=== PATIENT | male | born 1955 | race Caucasian/White ===

== ENCOUNTER 2017-03-18 06:05 | Inpatient (IN) | payer BC ==
[~2017-03-18] VITALS: Ht 180.3 cm; Wt 101.8 kg
[~2017-03-18 06:05] MED LIST: ATOR40TA PO; ESOM20CA PO; ESOM40CA PO; EZET10TA18 PO; LACT1CAP40 PO; MULT-516 PO; PHEN37.53 PO; VITAMIN B 12 PO; VITAMIN D3 PO; ZOLP10TA PO
[2017-03-18] MEDS ORDERED: THROMBIN 5,000 UNIT VIAL TP ONE (06:49)
[2017-03-18] MEDS ORDERED: VANCOMYCIN 1,000 MG ONE (06:49)
[2017-03-18] MEDS ORDERED: BUPIVACAINE/PF 0.5% ONE (06:50)
[2017-03-18] MEDS ORDERED: BUPIVACAINE/PF-EPI 0.25% 1:200K ONE (06:51)
[2017-03-18] MEDS ORDERED: EPINEPHRINE 1 MG/ML, 1ML ONE (06:51)
[2017-03-18 07:13] VITALS: BP 162/98
[2017-03-18] MEDS ORDERED: LACTATED RINGERS 1,000 ML IV SCH (07:21)
[2017-03-18] MEDS ORDERED: LIDOCAINE 1%, 2ML SQ PRN (07:30)
[2017-03-18] MEDS ORDERED: PROPOFOL 10 MG/ML, 20ML ONE (07:53)
[2017-03-18] MEDS ORDERED: FENTANYL PF 100 MCG/2ML ONE ×2 (07:53)
[2017-03-18] MEDS ORDERED: MIDAZOLAM 1 MG/ML, 2ML ONE (07:53)
[2017-03-18] MEDS ORDERED: DEXAMETHASONE 4 MG/ML, 1ML ONE ×2 (07:54)
[2017-03-18] MEDS ORDERED: SUCCINYLCHOLINE 20 MG/ML, 10ML ONE (07:54)
[2017-03-18] MEDS ORDERED: ONDANSETRON 2MG/ML, 2ML ONE ×2 (07:54)
[2017-03-18] MEDS ORDERED: ROCURONIUM 10 MG/ML ONE (07:54)
[2017-03-18] MEDS ORDERED: ALBUTEROL SULFATE 2.5 MG/3 ML NPPB PRN (08:30)
[2017-03-18] MEDS ORDERED: hydrALAzine 20 MG/ML, 1ML IV PRN (08:30)
[2017-03-18] MEDS ORDERED: ONDANSETRON 2MG/ML, 2ML IVPush PRN (08:30)
[2017-03-18] MEDS ORDERED: LABETALOL 5MG/ML, 20ML IV PRN (08:30)
[2017-03-18] MEDS ORDERED: PROMETHAZINE 25 MG/ML, 1ML IV PRN (08:30)
[2017-03-18] MEDS ORDERED: ACETAMINOPHEN 325 MG TABLET PO PRN (08:30)
[2017-03-18] MEDS ORDERED: MEPERIDINE/PF 25MG/0.5ML IVPush PRN (08:30)
[2017-03-18] MEDS ORDERED: FENTANYL PF 100 MCG/2ML IV PRN (08:30)
[2017-03-18] MEDS ORDERED: HYDROmorphone 1 MG/ML, 1ML IV PRN (08:30)
[2017-03-18] MEDS ORDERED: OXYcodone 5 MG/5 ML ORAL.SOL UDC PO PRN (08:30)
[2017-03-18] MEDS ORDERED: MIDAZOLAM 1 MG/ML, 2ML IV PRN (08:30)
[2017-03-18] MEDS ORDERED: CEFAZOLIN 1,000 MG ONE ×2 (08:57)
[2017-03-18] MEDS ORDERED: BUPIVACAINE/PF-EPI 0.5% 1:200K IM ONE (09:17)
[2017-03-18] MEDS ORDERED: MEPERIDINE/PF 25MG/0.5ML ONE ×2 (10:22→10:32)
== END 2017-03-18 16:00 | disposition home or self-care (01) | DRG 496 ==
LOC: ORIP 06:05 → EDSTATUS 09:00
PROVIDERS: ADMIT Orthopaedic Surgery Orthopaedic Surgery of the Spine; ATTEND Orthopaedic Surgery Orthopaedic Surgery of the Spine
PROC: 0P9 Upper Bones, Drainage (ICD-10-PCS; 2017-03-18)
PROC: 0PB40ZZ Excision of Thoracic Vertebra, Open Approach (ICD-10-PCS; principal; 2017-03-18 08:00)
DX: M48.8X4 Other specified spondylopathies, thoracic region (principal); G12.8 Other spinal muscular atrophies and related syndromes; H40.9 Unspecified glaucoma; I25.10 Atherosclerotic heart disease of native coronary artery without angina pectoris; L72.8 Other follicular cysts of the skin and subcutaneous tissue
CPT/HCPCS: 87070; 87075; 87205; 88307; 88311; J0171; J0690; J1100; J2175; J2250; J2405; J2704; J3010; J3370; J3490; J0330; J7120

== ENCOUNTER → 2018-11-06 | Outpatient (CLI) | payer BC ==
[~2018-11-06] MED LIST changes: +ACET325T14 PO; +ASPI81TA45 PO; +DOCU-131 PO; +IBUP200C8 PO; +INUL1TAB4 PO; +NAPR250T6 PO; +OMEP-110 PO; +PRAM0.25 PO; +TIMO5DRO8 EACHEYE; +TIZA4TAB PO; +TUMS; +VITAMIN B12; +VITAMIN C PO; +ZOLP12.54 PO
[2018-11-06 12:05] LABS: MICROSCOPIC NOT IND
[2018-11-06 12:07] LABS: BASOPHILS # (AUTO) 0.04 x10^3/uL (0-0.1); BASOPHILS % (AUTO) 1 % (0-1); EOSINOPHILS # (AUTO) 0.32 x10^3/uL (0-0.4); EOSINOPHILS % (AUTO) 4 % (1-7); LYMPHOCYTES # (AUTO) 2.24 x10^3/uL (1-3.4); LYMPHOCYTES % (AUTO) 26 % (22-44); MD NO; MEAN CORPUSCULAR HEMOGLOBIN 32.5 pg (27.5-34.5); MEAN CORPUSCULAR HGB CONC 32.7 g/dL (33.2-36.2); MEAN CORPUSCULAR VOLUME 99.4 fL (81-97); MEAN PLATELET VOLUME 8.1 fL (7.4-10.4); MONOCYTES # (AUTO) 0.88 x10^3/uL (0.2-0.8); MONOCYTES % (AUTO) 10 % (2-9); NEUTROPHILS % (AUTO) 60 % (42-75); PLATELET COUNT 200 x10^3/uL (130-400); RED BLOOD COUNT 4.83 x10^6/uL (4.38-5.82)
[2018-11-06 13:05] LABS: ALBUMIN 4.3 g/dL (3.4-5.0); ANION GAP 8 mmol/L (5-15); CALCIUM 9.5 mg/dL (8.5-10.1); CHLORIDE 110 mmol/L (98-107)
[2018-11-06 13:06] LABS: ALANINE AMINOTRANSFERASE 40 U/L (12-78); CREATININE 0.83 mg/dL (0.7-1.3)
[2018-11-06 13:09] LABS: ALKALINE PHOSPHATASE 75 U/L (45-117); BILIRUBIN,TOTAL 0.5 mg/dL (0.2-1.0)
== END | disposition home or self-care (01) ==
LOC: STAR 10:51
PROVIDERS: ATTEND Urology
DX: Z01.818 Encounter for other preprocedural examination (principal); D49.511 Neoplasm of unspecified behavior of right kidney; R94.31 Abnormal electrocardiogram [ECG] [EKG]
CPT/HCPCS: 36415; 80053; 81003; 85025; 87086; 93005

== ENCOUNTER → 2020-12-11 | Outpatient (CLI) | payer BC, MEDICARE ==
[~2020-12-11] MED LIST changes: +AMLO5TAB4 PO; -EZET10TA18 PO; +EZET10TA70 PO; -LACT1CAP40 PO; +LACT1CAP45 PO; +NAPR-872 PO; -NAPR250T6 PO; +OXYC1TAB14 PO; +SPIR25TA PO; -TIZA4TAB PO; +TIZA4TAB2 PO; -ZOLP12.54 PO; +ZOLP12.56 PO
[2020-12-11 15:56] LABS: BASOPHILS % (AUTO) 1 % (0-1); EOSINOPHILS % (AUTO) 7 % (1-7); LYMPHOCYTES % (AUTO) 29 % (22-44); MEAN CORPUSCULAR HEMOGLOBIN 31.6 pg (27.5-34.5); MEAN CORPUSCULAR HGB CONC 34.1 g/dL (33.2-36.2); MONOCYTES % (AUTO) 7 % (2-9); NEUTROPHILS % (AUTO) 57 % (42-75); PLATELET COUNT 207 x10^3/uL (130-400); RED BLOOD COUNT 4.74 x10^6/uL (4.38-5.82); RED CELL DISTRIBUTION WIDTH 17.5 % (9.4-14.8)
[2020-12-11 15:57] LABS: MICROSCOPIC NOT IND
[2020-12-11 16:05] LABS: ALANINE AMINOTRANSFERASE 55 U/L (12-78); ALBUMIN 4.1 g/dL (3.4-5.0); ANION GAP 7 mmol/L (5-15); CALCIUM 8.9 mg/dL (8.5-10.1); CHLORIDE 112 mmol/L (98-107); CREATININE 0.89 mg/dL (0.7-1.3)
[2020-12-11 16:06] LABS: INTERNATIONAL NORMALIZED RATIO 0.98 (0.93-1.1); PROTHROMBIN TIME 10.5 Seconds (9.6-11.5)
[2020-12-11 16:07] LABS: ALKALINE PHOSPHATASE 83 U/L (45-117); BILIRUBIN,TOTAL 0.4 mg/dL (0.2-1.0); TOTAL PROTEIN 7.4 g/dL (6.4-8.2)
== END | disposition home or self-care (01) ==
LOC: STAR 14:43
PROVIDERS: ATTEND Neurological Surgery
DX: Z01.810 Encounter for preprocedural cardiovascular examination (principal); Z01.811 Encounter for preprocedural respiratory examination; Z01.812 Encounter for preprocedural laboratory examination; M54.16 Radiculopathy, lumbar region; M54.5 Low back pain; M48.061 Spinal stenosis, lumbar region without neurogenic claudication; R79.1 Abnormal coagulation profile; R82.90 Unspecified abnormal findings in urine; R94.31 Abnormal electrocardiogram [ECG] [EKG]; I25.2 Old myocardial infarction; Z96.611 Presence of right artificial shoulder joint; Z20.822 Contact with and (suspected) exposure to COVID-19
CPT/HCPCS: 36415; 71046; 80053; 81003; 85025; 85610; 85730; 93005; U0003; U0005

== ENCOUNTER → 2020-12-11 | Outpatient (CLI) | payer BC | END | disposition home or self-care (01) | LOC: CFH 09:42 | PROVIDERS: ATTEND Neurological Surgery | DX: M48.061 Spinal stenosis, lumbar region without neurogenic claudication (principal); M25.78 Osteophyte, vertebrae; M51.36 Other intervertebral disc degeneration, lumbar region | CPT/HCPCS: 72131 ==

== ENCOUNTER 2020-12-17 07:48 | Inpatient (IN) | payer BC, MEDICARE ==
[~2020-12-17] VITALS: Ht 180.3 cm; Wt 115.8 kg
[~2020-12-17 07:48] MED LIST changes: +BUPIVACAINE/PF 0.5% ONE; +EPINEPHRINE 1 MG/ML, 1ML ONE; +GENTAMICIN 80 MG/2 ML ONE; +VANCOMYCIN 1,000 MG ONE
[2020-12-17] MEDS ORDERED: LACTATED RINGERS 1,000 ML IV SCH (08:30)
[2020-12-17] MEDS ORDERED: CHLORHEXIDINE 15 ML UDC PO ONE (08:30)
[2020-12-17] MEDS ORDERED: FENTANYL PF 250 MCG/5ML ONE ×2 (09:17→11:09)
[2020-12-17] MEDS ORDERED: PROPOFOL 150 ML ONE (09:19)
[2020-12-17] MEDS ORDERED: PROMETHAZINE 25 MG/ML, 1ML IVPush PRN (09:30)
[2020-12-17] MEDS ORDERED: MEPERIDINE/PF 25MG/0.5ML IVPush PRN (09:30)
[2020-12-17] MEDS ORDERED: HYDROmorphone 1 MG/ML, 1ML INJ IVPush PRN (09:30)
[2020-12-17] MEDS ORDERED: HALOPERIDOL 5 MG/ML IV PRN (09:30)
[2020-12-17] MEDS ORDERED: LABETALOL 5MG/ML, 20ML IV PRN ×2 (09:30→14:30)
[2020-12-17] MEDS ORDERED: EPHEDRINE 50 MG/ML, 1ML IVPush PRN (09:30)
[2020-12-17] MEDS ORDERED: LORazepam 2 MG/ML, 1ML IVPush PRN (09:30)
[2020-12-17] MEDS ORDERED: ACETAMINOPHEN 325 MG TABLET PO PRN (09:30)
[2020-12-17] MEDS ORDERED: METHOCARBAMOL 1,000 MG in DEXTROSE 5% 100 ML IV PRN (09:30)
[2020-12-17] MEDS ORDERED: ONDANSETRON 2MG/ML, 2ML IVPush PRN (09:30)
[2020-12-17] MEDS ORDERED: OXYcodone 5 MG/5 ML ORAL.SOL UDC PO PRN (09:30)
[2020-12-17] MEDS ORDERED: hydrALAzine 20 MG/ML, 1ML IV PRN (09:30)
[2020-12-17] MEDS ORDERED: EPHEDRINE 50 MG/ML, 1ML IM PRN (09:30)
[2020-12-17] MEDS ORDERED: VANCOMYCIN 1,000 MG IM ONE (10:18)
[2020-12-17] MEDS ORDERED: HYDROmorphone 1 MG/ML, 1ML INJ ONE (11:50)
[2020-12-17] MEDS ORDERED: FENTANYL PF 100 MCG/2ML ONE ×2 (12:16→12:48)
[2020-12-17] MEDS ORDERED: OXYcodone 5 MG/5 ML ORAL.SOL UDC ONE (12:48)
[2020-12-17] MEDS: FENTANYL PF 100 MCG/2ML IV PRN ×2 (12:53→13:00)
[2020-12-17 14:02] VITALS: BP 118/69
[2020-12-17] MEDS ORDERED: ONDANSETRON 2MG/ML, 2ML IV PRN (14:30)
[2020-12-17] MEDS ORDERED: DIPHENHYDRAMINE 25 MG CAPSULE PO PRN (14:30)
[2020-12-17] MEDS ORDERED: BISACODYL 10 MG SUPP PR PRN (14:30)
[2020-12-17] MEDS ORDERED: MAGNESIUM HYDROXIDE 8%, 30ML UDC PO PRN (14:30)
[2020-12-17] MEDS ORDERED: PROMETHAZINE 25 MG/ML, 1ML IM PRN (14:30)
[2020-12-17] MEDS ORDERED: HYDROcodone/APAP 10/325 MG TABLET PO PRN (14:30)
[2020-12-17] MEDS ORDERED: CEFAZOLIN PMX 1GM/50ML 50 ML IV SCH (15:00)
[2020-12-17] MEDS ORDERED: METHOCARBAMOL 1,000 MG in DEXTROSE 5% 100 ML IV ONE (15:00)
[2020-12-17] MEDS ORDERED: CALCIUM CARBONATE 500 MG TAB.CHEW PO PRN (15:00)
[2020-12-17] MEDS: OXYcodone IR 5MG TABLET PO PRN (16:02)
[2020-12-17] MEDS: CEFAZOLIN PMX 1GM/50ML 50 ML IV SCH (17:39)
[2020-12-17] MEDS: D5%-0.9% NACL+KCL 20MEQ 1,000 ML IV SCH (17:39)
[2020-12-17 20:03] VITALS: BP 126/71
[2020-12-17] MEDS: ZOLPIDEM 10MG TABLET PO SCH (21:34)
[2020-12-17] MEDS: ATORVASTATIN 40 MG TABLET PO SCH (21:34)
[2020-12-17] MEDS: TAMSULOSIN 0.4 MG CAP.ER.24H PO SCH (21:34)
[2020-12-17] MEDS: PRAMIPEXOLE 0.25MG TABLET PO SCH (21:48)
[2020-12-17] MEDS ORDERED: PRAMIPEXOLE 0.5MG TABLET ONE (21:50)
[2020-12-17] MEDS: METHOCARBAMOL 750 MG in DEXTROSE 5% 100 ML IV SCH (23:23)
[2020-12-18 00:07] VITALS: BP 125/79
[2020-12-18] MEDS: CEFAZOLIN PMX 1GM/50ML 50 ML IV SCH (02:05)
[2020-12-18] MEDS: OXYcodone IR 5MG TABLET PO PRN ×5 (02:09→22:09)
[2020-12-18] MEDS: D5%-0.9% NACL+KCL 20MEQ 1,000 ML IV SCH ×3 (03:30→23:30)
[2020-12-18 04:17] VITALS: BP 104/63
[2020-12-18] MEDS ORDERED: OMEPRAZOLE 20 MG CAPSULE.DR PO SCH ×2 (06:00)
[2020-12-18] MEDS: ENOXAPARIN 40 MG/0.4 ML SQ SCH (06:29)
[2020-12-18] MEDS: METHOCARBAMOL 750 MG in DEXTROSE 5% 100 ML IV SCH ×2 (06:29→15:28)
[2020-12-18 06:35] VITALS: BP 110/68
[2020-12-18] MEDS: SENNA/DOCUSATE TABLET PO SCH (09:17)
[2020-12-18] MEDS: EZETIMIBE 10 MG TABLET PO SCH (09:17)
[2020-12-18] MEDS: TAMSULOSIN 0.4 MG CAP.ER.24H PO SCH ×2 (09:17→22:08)
[2020-12-18] MEDS: SPIRONOLACTONE 25 MG TABLET PO SCH (09:17)
[2020-12-18] MEDS: AMLODIPINE 5 MG TABLET PO SCH (09:17)
[2020-12-18] MEDS: TIMOLOL OPHTH 0.5%, 5ML EACHEYE SCH (10:01)
[2020-12-18] MEDS ORDERED: HYDROcodone/APAP 10/325 MG TABLET PO PRN (10:30)
[2020-12-18] MEDS ORDERED: ACETAMINOPHEN 500 MG TABLET PO PRN (12:30)
[2020-12-18] MEDS: BETHANECHOL 10 MG TABLET PO SCH ×3 (12:33→22:07)
[2020-12-18 13:17] VITALS: BP 115/71
[2020-12-18] MEDS: OMEPRAZOLE 20 MG CAPSULE.DR PO SCH (16:54)
[2020-12-18 19:01] VITALS: BP 128/76
[2020-12-18] MEDS: ZOLPIDEM 10MG TABLET PO SCH (22:07)
[2020-12-18] MEDS: ATORVASTATIN 40 MG TABLET PO SCH (22:07)
[2020-12-18] MEDS: PRAMIPEXOLE 0.25MG TABLET PO SCH (22:10)
[2020-12-19] MEDS: METHOCARBAMOL 750 MG in DEXTROSE 5% 100 ML IV SCH ×3 (00:06→15:53)
[2020-12-19 00:24] VITALS: BP 148/73
[2020-12-19] MEDS: OXYcodone IR 5MG TABLET PO PRN ×5 (04:37→22:07)
[2020-12-19] MEDS: ENOXAPARIN 40 MG/0.4 ML SQ SCH (06:23)
[2020-12-19 06:44] VITALS: BP 139/79
[2020-12-19] MEDS: TAMSULOSIN 0.4 MG CAP.ER.24H PO SCH ×2 (08:16→22:05)
[2020-12-19] MEDS: TIMOLOL OPHTH 0.5%, 5ML EACHEYE SCH (08:16)
[2020-12-19] MEDS: SENNA/DOCUSATE TABLET PO SCH (08:16)
[2020-12-19] MEDS: BETHANECHOL 10 MG TABLET PO SCH ×3 (08:16→22:05)
[2020-12-19] MEDS: EZETIMIBE 10 MG TABLET PO SCH (08:17)
[2020-12-19] MEDS: D5%-0.9% NACL+KCL 20MEQ 1,000 ML IV SCH ×2 (08:17→18:22)
[2020-12-19] MEDS: SPIRONOLACTONE 25 MG TABLET PO SCH (08:17)
[2020-12-19] MEDS: AMLODIPINE 5 MG TABLET PO SCH (08:17)
[2020-12-19 14:54] VITALS: BP 144/77
[2020-12-19] MEDS: OMEPRAZOLE 20 MG CAPSULE.DR PO SCH (18:38)
[2020-12-19 18:55] VITALS: BP 136/78
[2020-12-19] MEDS: ZOLPIDEM 10MG TABLET PO SCH (22:04)
[2020-12-19] MEDS: METHOCARBAMOL 750 MG TABLET PO SCH (22:04)
[2020-12-19] MEDS: PRAMIPEXOLE 0.25MG TABLET PO SCH (22:05)
[2020-12-19] MEDS: ATORVASTATIN 40 MG TABLET PO SCH (22:05)
[2020-12-20 01:22] VITALS: BP 135/80
[2020-12-20] MEDS: OXYcodone IR 5MG TABLET PO PRN ×6 (05:07→21:04)
[2020-12-20] MEDS: ENOXAPARIN 40 MG/0.4 ML SQ SCH (05:07)
[2020-12-20] MEDS: D5%-0.9% NACL+KCL 20MEQ 1,000 ML IV SCH ×2 (05:30→14:28)
[2020-12-20 07:24] VITALS: BP 130/75
[2020-12-20] MEDS: METHOCARBAMOL 750 MG TABLET PO SCH ×3 (07:32→18:32)
[2020-12-20] MEDS ORDERED: KETOROLAC 30 MG/1 ML IVPush PRN (08:00)
[2020-12-20] MEDS: AMLODIPINE 5 MG TABLET PO SCH (08:41)
[2020-12-20] MEDS: TIMOLOL OPHTH 0.5%, 5ML EACHEYE SCH (08:41)
[2020-12-20] MEDS: SPIRONOLACTONE 25 MG TABLET PO SCH (08:41)
[2020-12-20] MEDS: POLYETHYLENE GLYCOL 17 GM PACKET PO SCH (08:41)
[2020-12-20] MEDS: EZETIMIBE 10 MG TABLET PO SCH (08:41)
[2020-12-20] MEDS: SENNA/DOCUSATE TABLET PO SCH (08:41)
[2020-12-20] MEDS: BETHANECHOL 10 MG TABLET PO SCH ×3 (08:41→21:03)
[2020-12-20] MEDS: TAMSULOSIN 0.4 MG CAP.ER.24H PO SCH ×2 (08:41→21:03)
[2020-12-20] MEDS ORDERED: PROMETHAZINE 25 MG/ML, 1ML IM PRN (10:30)
[2020-12-20] MEDS ORDERED: DIPHENHYDRAMINE 25 MG CAPSULE PO PRN (10:30)
[2020-12-20] MEDS: ENOXAPARIN 30 MG/0.3 ML SQ SCH (17:18)
[2020-12-20] MEDS: OMEPRAZOLE 20 MG CAPSULE.DR PO SCH (17:18)
[2020-12-20 18:22] VITALS: BP 114/57
[2020-12-20] MEDS: ATORVASTATIN 40 MG TABLET PO SCH (21:02)
[2020-12-20] MEDS: ZOLPIDEM 10MG TABLET PO SCH (21:03)
[2020-12-20] MEDS: PRAMIPEXOLE 0.25MG TABLET PO SCH (21:03)
[2020-12-21 01:09] VITALS: BP 151/76
[2020-12-21] MEDS: D5%-0.9% NACL+KCL 20MEQ 1,000 ML IV SCH ×3 (01:30→21:21)
[2020-12-21] MEDS: METHOCARBAMOL 750 MG TABLET PO SCH ×4 (03:40→21:17)
[2020-12-21] MEDS: OXYcodone IR 5MG TABLET PO PRN (03:40)
[2020-12-21 05:29] LABS: CREATININE 0.59 mg/dL (0.7-1.3)
[2020-12-21] MEDS: ENOXAPARIN 30 MG/0.3 ML SQ SCH ×2 (06:11→17:23)
[2020-12-21 07:24] VITALS: BP 121/72
[2020-12-21] MEDS ORDERED: HYDROmorphone 4MG TABLET PO PRN (07:30)
[2020-12-21] MEDS ORDERED: MAGNESIUM CITRATE 300ML ORAL SOL PO PRN (08:00)
[2020-12-21] MEDS: POLYETHYLENE GLYCOL 17 GM PACKET PO SCH (08:47)
[2020-12-21] MEDS: HYDROcodone/APAP 10/325 MG TABLET PO PRN ×4 (08:47→21:16)
[2020-12-21] MEDS: BETHANECHOL 10 MG TABLET PO SCH ×3 (08:48→21:17)
[2020-12-21] MEDS: SENNA/DOCUSATE TABLET PO SCH (08:48)
[2020-12-21] MEDS: AMLODIPINE 5 MG TABLET PO SCH (08:48)
[2020-12-21] MEDS: TAMSULOSIN 0.4 MG CAP.ER.24H PO SCH ×2 (08:49→21:16)
[2020-12-21] MEDS: SPIRONOLACTONE 25 MG TABLET PO SCH (08:49)
[2020-12-21] MEDS: EZETIMIBE 10 MG TABLET PO SCH (08:49)
[2020-12-21] MEDS: TIMOLOL OPHTH 0.5%, 5ML EACHEYE SCH (08:55)
[2020-12-21 13:58] VITALS: BP 113/63
[2020-12-21] MEDS: OMEPRAZOLE 20 MG CAPSULE.DR PO SCH (17:22)
[2020-12-21 19:29] VITALS: BP 143/83
[2020-12-21] MEDS ORDERED: PRAMIPEXOLE 0.5MG TABLET PO SCH (21:00)
[2020-12-21] MEDS ORDERED: PRAMIPEXOLE 0.5MG TABLET ONE (21:11)
[2020-12-21] MEDS: ATORVASTATIN 40 MG TABLET PO SCH (21:16)
[2020-12-21] MEDS: ZOLPIDEM 10MG TABLET PO SCH (21:17)
[2020-12-22] MEDS: HYDROcodone/APAP 10/325 MG TABLET PO PRN ×3 (01:14→12:10)
[2020-12-22 01:55] VITALS: BP 129/71
[2020-12-22] MEDS: METHOCARBAMOL 750 MG TABLET PO SCH ×2 (04:08→09:28)
[2020-12-22] MEDS: ENOXAPARIN 30 MG/0.3 ML SQ SCH (06:01)
[2020-12-22 06:59] VITALS: BP 120/74
[2020-12-22] MEDS: D5%-0.9% NACL+KCL 20MEQ 1,000 ML IV SCH (08:04)
[2020-12-22] MEDS: POLYETHYLENE GLYCOL 17 GM PACKET PO SCH (08:19)
[2020-12-22] MEDS ORDERED: TAMS-11 PO (08:22)
[2020-12-22] MEDS ORDERED: METH-640 PO (08:22)
[2020-12-22] MEDS ORDERED: HYDR1TAB53 PO (08:22)
[2020-12-22] MEDS: AMLODIPINE 5 MG TABLET PO SCH (08:24)
[2020-12-22] MEDS: TAMSULOSIN 0.4 MG CAP.ER.24H PO SCH (08:24)
[2020-12-22] MEDS: EZETIMIBE 10 MG TABLET PO SCH (08:24)
[2020-12-22] MEDS: SENNA/DOCUSATE TABLET PO SCH (08:24)
[2020-12-22] MEDS: SPIRONOLACTONE 25 MG TABLET PO SCH (08:25)
[2020-12-22] MEDS: TIMOLOL OPHTH 0.5%, 5ML EACHEYE SCH (08:25)
[2020-12-22 10:29] VITALS: BP 111/71
== END 2020-12-22 12:37 | disposition home or self-care (01) | DRG 460 ==
LOC: ORIP 07:48 → 4NE 14:00 → DCLOUNGE 12-22 12:33
PROVIDERS: ADMIT Neurological Surgery; ATTEND Neurological Surgery
PROC: 01NB0ZZ Release Lumbar Nerve, Open Approach (ICD-10-PCS; 2020-12-17)
PROC: 01NR0ZZ Release Sacral Nerve, Open Approach (ICD-10-PCS; 2020-12-17)
PROC: 8E0W0CZ Robotic Assisted Procedure of Trunk Region, Open Approach (ICD-10-PCS; 2020-12-17)
PROC: 0SG1071 Fusion of 2 or more Lumbar Vertebral Joints with Autologous Tissue Substitute, Posterior Approach, Posterior Column, Open Approach (ICD-10-PCS; principal; 2020-12-17 10:00)
DX: M48.062 Spinal stenosis, lumbar region with neurogenic claudication (principal); M47.26 Other spondylosis with radiculopathy, lumbar region; M51.16 Intervertebral disc disorders with radiculopathy, lumbar region; M51.37 Other intervertebral disc degeneration, lumbosacral region; Z98.1 Arthrodesis status; Z88.2 Allergy status to sulfonamides; Z88.8 Allergy status to other drugs, medicaments and biological substances; R33.9 Retention of urine, unspecified
CPT/HCPCS: 36415; 72100; S0020; 82565; 86850; 86900; C1713; G0378; J0171; J0690; J1170; J1650; J2704; J3010; J3370; J1580; J2800; J3480; J7120